=== PATIENT | female | born 1980 | race Caucasian/White ===

== ENCOUNTER 2017-08-12 15:13 | Emergency (ER) | payer MEDICAID ==
[~2017-08-12] VITALS: Ht 162.6 cm; Wt 59.7 kg
[~2017-08-12 15:13] MED LIST: DOCO100C PO; FERR325T18 PO; IBUP-1223 PO; OMEP-110 PO; ONDA4TAB7 PO; OXYC-302 PO; PREN1TAB60 PO; RANI150T23 PO; SENN-25 PO
[2017-08-12 15:14] VITALS: BP 106/67
[2017-08-12 15:38] LABS: BASOPHILS # (AUTO) 0.05 x10^3/uL (0-0.1); BASOPHILS % (AUTO) 1 % (0-1); EOSINOPHILS # (AUTO) 0.16 x10^3/uL (0-0.4); EOSINOPHILS % (AUTO) 1 % (1-7); LYMPHOCYTES # (AUTO) 3.28 x10^3/uL (1-3.4); LYMPHOCYTES % (AUTO) 29 % (22-44); MD NO; MEAN CORPUSCULAR HGB CONC 34.3 g/dL (32.4-35.8); MEAN CORPUSCULAR VOLUME 96.2 fL (80-100); MEAN PLATELET VOLUME 7.1 fL (7.4-10.4); MONOCYTES # (AUTO) 0.75 x10^3/uL (0.2-0.8); MONOCYTES % (AUTO) 7 % (2-9); NEUTROPHILS # (AUTO) 6.93 x10^3/uL (1.8-6.8); NEUTROPHILS % (AUTO) 62 % (42-75); PLATELET COUNT 321 x10^3/uL (130-400); RED BLOOD COUNT 4.59 x10^6/uL (3.82-5.3); RED CELL DISTRIBUTION WIDTH 12.8 % (9.6-15.2)
[2017-08-12 15:49] LABS: ALBUMIN 4.2 g/dL (3.4-5.0); ANION GAP 6 mmol/L (5-15); CALCIUM 8.3 mg/dL (8.5-10.1); CHLORIDE 107 mmol/L (98-107); CREATININE 1.08 mg/dL (0.55-1.02)
[2017-08-12 16:22] LABS: CULTURE INDICATED? NO; MICROSCOPIC AUTO
== END 2017-08-12 17:14 | disposition home or self-care (01) ==
LOC: ED 16:31
DX: N93.8 Other specified abnormal uterine and vaginal bleeding (principal); N92.4 Excessive bleeding in the premenopausal period; R30.0 Dysuria; F17.200 Nicotine dependence, unspecified, uncomplicated; A63.0 Anogenital (venereal) warts; Z90.49 Acquired absence of other specified parts of digestive tract
CPT/HCPCS: 36415; 76830; 80048; 81001; 82040; 84703; 85025; 99285